=== PATIENT | female | born 2000 | race Asian ===

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

== ENCOUNTER 2018-06-12 12:31 | Emergency (ER) | payer BC ==
[2018-06-12 12:45] VITALS: BP 110/76
--- NOTE | 2018-06-12 13:25 | UC ---
HPI Wound/Suture Re-check - HPI Summary HPI Summary: 17 y/o female presents to the urgent care requesting suture removal in the left side forehead s/p falling down stair on 06/07/2018. Sutures were placed on [place] [facility]. Pt denies any signs of infection. Mild pain 2/10 at times w/ a ELLISON. Pt states wound healing well. Pt denies fever, SOB, chest pain, abdominal pain, eye pain, photophobia, dizziness. - History Of Current Complaint Chief Complaint: UCLaceration Stated Complaint: STITCH REMOVAL Time Seen by Provider: 06/12/18 13:18 Hx Obtained From: Patient Hx Last Menstrual Period: one week ago Onset/Duration: Sudden Onset, Lasting Weeks - 1 week, Resolved Severity: Mild Pain Intensity: 2 Pain Scale Used: 0-10 Numeric - Allergies/Home Medications Allergies/Adverse Reactions: Allergies Allergy/AdvReac Type Severity Reaction Status Date / Time amoxicillin Allergy Hives Verified 06/12/18 12:45 Home Medications: Home Medications FLUoxetine CAP* [Prozac CAP*] 1 tab PO DAILY 06/12/18 [History Confirmed ] PMH/Surg Hx/FS Hx/Imm Hx Previously Healthy: Yes - Pt denies PMHX - Surgical History Surgical History: None Surgery Procedure, Year, and Place: none - Family History Known Family History: Positive: None - Pt denies PMHX Negative: Hypertension, Diabetes - Social History Occupation: Student Lives: With Family Alcohol Use: Occasionally Substance Use Type: None Smoking Status (MU): Never Smoked Tobacco Review of Systems Constitutional: Negative Skin: Other - left side of forehear w/ a healing wound s/p laceration Eyes: Negative ENT: Negative Respiratory: Negative Cardiovascular: Negative Gastrointestinal: Negative Genitourinary: Negative Motor: Negative Neurovascular: Negative Musculoskeletal: Negative Neurological: Negative Psychological: Negative Is Patient Immunocompromised?: No All Other Systems Reviewed And Are Negative: Yes Physical Exam - Summary Physical Exam Summary: Vital Signs Reviewed: Yes General: well developed, well nourished female adolescent sitting in the examining table w/o any apparent distress Eye Exam: Normal Eyes: Positive: Conjunctiva Clear - PERRLA, EOMI, fundi grossly normal ENT: Positive: Normal ENT inspection, Hearing grossly normal, Pharynx normal, TMs normal Neck: Positive: Supple, Nontender, No Lymphadenopathy Respiratory: Positive: Chest non-tender, Lungs clear, Normal breath sounds, No respiratory distress Cardiovascular: Positive: RRR, No Murmur, Pulses Normal, Brisk Capillary Refill Abdomen Description: Positive: Nontender, No Organomegaly, Soft. Negative: CVA Tenderness (R), CVA Tenderness (L) Bowel Sounds: Positive: Present Musculoskeletal: Positive: Strength Intact, ROM Intact, No Edema Neurological: Positive: Alert, Muscle Tone Normal Psychological Exam: Normal Skin: Positive:Left side of forehead w/ wound healing well with crusting and moderate granulation over, non tender to palpation, [address] about 3.0 cm in size. Triage Information Reviewed: Yes Vital Signs: Initial Vital Signs Temp 98.7 F 06/12/18 12:42 Pulse 67 06/12/18 12:42 Resp 18 06/12/18 12:42 BP 110/76 06/12/18 12:42 Pulse Ox 100 06/12/18 12:42 Course/Dx - Course Course Of Treatment: 17 y/o female presents to the urgent care requesting suture removal in the left side forehead s/p falling down stair on 06/07/2018. Sutures were placed on [place] [facility]. Pt denies any signs of infection. Mild pain 2/ 10 at times w/ a ELLISON. Pt states wound healing well. Pt denies fever, SOB, chest pain, abdominal pain, eye pain, photophobia. Hx obtained. Pt wound healing well with crusting and moderate granulation over, non tender to palpation, [address] 7 sutures removed w/o any difficulty. Pt tolerated well procedure. wound cleaned with sterile water and bacitracin applied over and cover with sterile gauze. Pt advised if redness, pain or fever develops to return to the urgent care or f/u with PCP for further treatment. Pt understood and agreed with plan of care - Differential Dx - Laceration/Wound Differential Diagnoses: Cellulitis, Healing Wound, Suture Removal Provider Diagnoses: 1- Forehead suture removal Discharge - Sign-Out/Discharge Documenting (check all that apply): Patient Departure - D/c home All imaging exams completed and their final reports reviewed: No Studies - Discharge Plan Condition: Stable Disposition: HOME Prescriptions: Bacitracin OINTMENT* 1 applic TOPICAL BID #1 tube Patient Education Materials: Acute Wound Care (ED) Referrals: [facility] [Outside] - If Needed Additional Instructions: 1-Please apply topical antibiotic over the wound. Keep wound clean and dry. 2-Take Ibuprofen or Tylenol PO q6-8hrs prn for your Headache 4- If you develop fever or redness around your wound please return to the Urgent care or f/u w/ your PCP at [facility] for further management. - Billing Disposition and Condition Condition: STABLE Disposition: Home
== END 2018-06-12 13:49 | disposition home or self-care (01) ==
LOC: UCEAST 12:31
DX: S01.81XD Laceration without foreign body of other part of head, subsequent encounter (principal); Z88.0 Allergy status to penicillin; W10.9XXD Fall (on) (from) unspecified stairs and steps, subsequent encounter

== ENCOUNTER 2019-10-30 07:47 | Emergency (ER) | payer BC ==
[2019-10-30 08:08] VITALS: BP 109/69
--- NOTE | 2019-10-30 09:26 | UC ---
Skin Complaint HPI - HPI Summary HPI Summary: 2 WEEKS OF ITCHY, CIRCULAR LESIONS ON THE LEFT UPPER CHEST. FEELS THEY'RE GETTING A LITTLE BIT BIGGER. WAS IN THE ICU A FEW WEEKS AGO AFTER SUSTAINING A LIVER LACERATION FROM A FALL. SHE IS RECOVERING WELL FROM THIS BUT WONDERS IF THE RASH IS FROM SOMETHING ADHESIVE THAT WAS PLACED ON HER SKIN AT THAT TIME. - History of Current Complaint Chief Complaint: UCSkin Time Seen by Provider: 10/30/19 08:00 Stated Complaint: RASH Hx Obtained From: Patient Hx Last Menstrual Period: current Onset/Duration: Gradual Onset, Lasting Weeks, Still Present Timing: Constant Onset Severity: Mild Current Severity: Mild Pain Intensity: 0 Pain Scale Used: 0-10 Numeric Character: Pruritus, Redness Aggravating Factor(s): Nothing Alleviating Factor(s): Nothing Associated Signs & Symptoms: Positive: Negative - Allergy/Home Medications Allergies/Adverse Reactions: Allergies Allergy/AdvReac Type Severity Reaction Status Date / Time amoxicillin Allergy Hives Verified 10/30/19 08:08 Home Medications: Home Medications Bupropion XL* [Wellbutrin XL *] 150 mg PO DAILY 10/30/19 [History Confirmed 11/17] Escitalopram * [Lexapro 5 mg (NF)] 5 mg PO DAILY 10/30/19 [History Confirmed 11/17] Propranolol 20 mg TAB [Inderal 20 mg TAB] 20 mg PO DAILY 10/30/19 [History Confirmed 10/30/19] PMH/Surg Hx/FS Hx/Imm Hx Other GI/ History: LIVER LACERATION 09/2019 Psychological History: Depression - Surgical History Surgical History: None Surgery Procedure, Year, and Place: none - Family History Known Family History: Positive: None - Pt denies PMHX Negative: Hypertension, Diabetes - Social History Alcohol Use: Occasionally Substance Use Type: None Smoking Status (MU): Never Smoked Tobacco Review of Systems All Other Systems Reviewed And Are Negative: Yes Constitutional: Positive: Negative Skin: Positive: Rash Respiratory: Positive: Negative Cardiovascular: Positive: Negative Gastrointestinal: Positive: Negative Physical Exam Triage Information Reviewed: Yes Appearance: Well-Appearing, No Pain Distress, Well-Nourished Vital Signs: Initial Vital Signs Temp 97.9 F 10/30/19 08:02 Pulse 64 10/30/19 08:02 Resp 16 10/30/19 08:02 BP 109/69 10/30/19 08:02 Pulse Ox 99 10/30/19 08:02 Vital Signs Reviewed: Yes Eyes: Positive: Conjunctiva Clear ENT: Positive: Hearing grossly normal Neck: Positive: Supple Respiratory: Positive: No respiratory distress, No accessory muscle use Cardiovascular: Positive: Pulses Normal Abdomen Description: Positive: Soft Musculoskeletal: Positive: No Edema Neurological: Positive: Alert Psychological: Positive: Age Appropriate Behavior Skin: Positive: Rashes - CIRCULAR LESIONS ON LEFT ANTERIOR CHEST X 2, MEASURING 2CM AND 1.8CM. CENTRAL CLEARING. ERYTHEMATOUS, SCALY EDGES WITH A FEW SMALL PUSTULES Course/Dx - Course Course Of Treatment: APPEARANCE OF RASH IS CONSISTENT WITH RINGWORM. RX FOR CLOTRIMAZOLE TOPICALLY. ADVISED IT MAY TAKE SEVERAL WEEKS TO RESOLVE. IF NOT IMPROVING EXPECTED FOLLOW-UP WITH DERMATOLOGY. - Diagnoses Provider Diagnosis: Tinea corporis Discharge ED - Sign-Out/Discharge Documenting (check all that apply): Patient Departure All imaging exams completed and their final reports reviewed: No Studies - Discharge Plan Condition: Stable Disposition: HOME Prescriptions: Clotrimazole 1% CREAM* [Clotrimazole 1%*] 1 applic TOPICAL BID #1 tube Patient Education Materials: Tinea Corporis (ED) Referrals: [facility] [Outside] - If Needed Additional Instructions: YOUR RASH IS CONSISTENT IN APPEARANCE WITH RINGWORM. APPLY THE TOPICAL ANTIFUNGAL TWICE DAILY FOR UP TO 4 WEEKS. DO NOT SCRATCH. IF IT IS NOT IMPROVING EXPECTED IN THIS TIME FOLLOW-UP WITH A PAYABLE PROCESSOR. DERMATOLOGY IN [place] DR. LARON MADERA (DOES NOT SEE PTS ON MONDAYS OR TUESDAYS. DOES NOT TAKE MEDICAID) [facility], [facility] [address]; [address] [place] [address] Dr. Kathy Benitez Address: [address] [place] [address] [address]. KENROY NEUMANN [facility] Dermatology [address] [place] [address] [facility] D[facility]MATOLOGY HOMER LOCATION [address] [place] [address] [facility] Yesika O[place]stead DERMATOLOGY IN [place] [address] HOSSEIN MAR [phone] - Billing Disposition and Condition Condition: STABLE Disposition: Home
== END 2019-10-30 09:28 | disposition home or self-care (01) ==
LOC: UCEAST 07:47
DX: B35.4 Tinea corporis (principal); F32.9 Major depressive disorder, single episode, unspecified; Z88.0 Allergy status to penicillin; Z79.899 Other long term (current) drug therapy
CPT/HCPCS: 99212; G0463